=== PATIENT | female | born 1990 | race Caucasian/White ===

== ENCOUNTER 2016-05-22 17:18 | Emergency (ER) | payer SELFPAY ==
[~2016-05-22] VITALS: Ht 162.6 cm; Wt 49.0 kg
[~2016-05-22 17:18] MED LIST: IBUP-232 PO
[2016-05-22 17:27] VITALS: BP 118/76; PULSE 113; RESP 15; TEMP 99.1; O2SAT 100
[2016-05-22 18:44] LABS: BLOOD, URINE NEG (NEG); GLUCOSE,URINE NEG (NEG); KETONE, URINE TRACE mg/dL (NEG); NITRITE,URINE NEG (NEG); PH, URINE 5.5 (5.0-8.5)
[2016-05-22 18:50] LABS: URINE COLOR YELLOW (YELLW/STRAW)
[2016-05-22 18:51] LABS: COMMENT (UR) CULT NOT INDICATED; CULTURE IF INDICATED CULT NOT INDICATED; SQUAMOUS EPITHELIAL CELL URINE > 8 /hpf (0-5); WBC, URINE 0-2 /hpf (0-5)
[2016-05-22] MEDS ORDERED: DOXY100C PO (18:51)
[2016-05-22] MEDS ORDERED: METR-1 PO (18:51)
[2016-05-22] MEDS ORDERED: IBUP800T23 PO (18:51)
[2016-05-22] MEDS ORDERED: ULTR50TA5 PO (18:51)
[2016-05-22] MEDS ORDERED: ZOFR4TAB PO (18:51)
--- NOTE | 2016-05-22 18:52 | PD ---
HPI . Lower abdominal pain Chief Complaint: GI Complaint Time Seen by Provider: 18:27 Travel History International Travel<30 days: No Contact w/Intl Traveler<30days: No Traveled to known affect area: No History of Present Illness HPI Patient presents with a couple day history of lower abdominal pain. It is associated with some nausea and vomiting. She also has a vaginal discharge. She states her last normal menstrual period was over 4 weeks ago. [id number]: Suprapubic area QUALITY: Cramping DURATION: 2 days TIMING: Continuous ASSOCIATED SYMPTOMS: Vomiting and vaginal discharge PFSH Past Medical History Diminished Hearing: No Neurologic: Yes (head injury 06/26) Immunizations Current: Yes Influenza Vaccination: No ?: Unknown LMP: 04/2016 Menopausal: No : 2 Para: 2 Past Surgical History Section: Yes (2013) Gynecologic Surgery: Yes (C SECTION) Social History Alcohol Use: No Tobacco Use: Yes (02/20 PPD) Substance Use: No (HX OF NARCOTIC DEPENDENCE) Allergies-Medications (Allergen,Severity, Reaction): Coded Allergies: No Known Allergies (Verified , 05/22/16) Reported Meds & Prescriptions Reported Meds & Active Scripts Active Zofran (Ondansetron HCl) 4 Mg Tab 4 Mg PO Q6HR PRN Ultram (Tramadol HCl) 50 Mg Tab 50 Mg PO Q4H PRN Ibuprofen 800 Mg Tab 800 Mg PO Q8H PRN Flagyl (Metronidazole) 500 Mg Tab 500 Mg PO BID 7 Days Doxycycline Hyclate 100 Mg Cap 100 Mg PO BID Review of Systems Except as stated in HPI: all other systems reviewed are Neg General / Constitutional: No: Fever, Chills Gastrointestinal: Positive: Nausea, Vomiting, Abdominal Pain, No: Diarrhea Genitourinary: Positive: Discharge, Other (amenorrhea), No: Urgency, Frequency , Dysuria Physical Exam Narrative GENERAL: Awake and alert and in no acute distress. SKIN: Warm and dry. HEAD: Atraumatic. Normocephalic. EYES: Pupils equal and round. Extraocular movements are intact. ENT: No nasal bleeding or discharge. Mucous membranes pink and moist. NECK: Trachea midline. Neck is supple. CARDIOVASCULAR: Regular rate and rhythm. RESPIRATORY: No accessory muscle use. GASTROINTESTINAL: Abdomen soft, non-tender, nondistended. : She has a thick, yellow discharge. She has positive cervical motion tenderness. She has bilateral adnexal tenderness. No masses palpated. Uterus is small. MUSCULOSKELETAL: No obvious deformities. No edema. NEUROLOGICAL: Awake and alert. No obvious cranial nerve deficits. Motor grossly within normal limits. Normal speech. PSYCHIATRIC: Appropriate mood and affect; insight and judgment normal. Data Data Last Documented VS Vital Signs Date Time Temp Pulse Resp B/P Pulse Ox O2 Delivery O2 Flow Rate FiO2 05/22/16 17:27 99.1 113 15 118/76 100 Orders Gc And Chlamydia Pcr (05/22/16 18:27) Wet Prep Profile (05/22/16 18:27) Urinalysis - C+S If Indicated (05/22/16 18:27) Ed Urine Pregnancytest Poc (05/22/16 18:27) Ceftriaxone Inj (Rocephin Inj) (05/22/16 19:00) Labs Laboratory Tests Test 05/22/16 05/22/16 18:15 18:38 Urine Color YELLOW Urine Turbidity CLOUDY Urine pH 5.5 Urine Specific [place] 1.025 Urine Protein NEG mg/dL Urine Glucose (UA) NEG mg/dL Urine Ketones TRACE mg/dL Urine Occult Blood NEG Urine Nitrite NEG Urine Bilirubin NEG Urine Leukocyte Esterase NEG Urine WBC 0-2 /hpf Urine Squamous Epithelial > 8 /hpf Cells Microscopic Urinalysis Comment CULT NOT INDICATED Clue Cells (Wet Prep) NONE SEEN Vaginal Trichomonas (Wet Prep) NONE SEEN Vaginal Yeast (Wet Prep) NONE SEEN MDM Medical Decision Making Medical Screen Exam Complete: Yes Emergency Medical Condition: Yes Differential Diagnosis Differential diagnosis of pelvic pain includes but is not limited to UTI, PID, ectopic , spontaneous AB, constipation, viral illness Narrative Course Patient presents with pelvic pain associated with nausea and vomiting and vaginal discharge. Urine test is negative. Physical exam is compatible with PID. Diagnosis Primary Impression: PID (acute pelvic inflammatory disease) Patient Instructions: General Instructions, Pelvic Inflammatory Disease (DC) Scripts Ondansetron (Zofran)4 Mg Tab4 Mg PO Q6HR PRN (NAUSEA OR VOMITING) #10 TAB Ref 0 Prov:Loren Foreman MD 05/22/16 Tramadol (Ultram)50 Mg Tab50 Mg PO Q4H PRN (PAIN) #12 TAB Ref 0 Prov:Loren Foreman MD 05/22/16 Ibuprofen 800 Mg [id number] Mg PO Q8H PRN (pain) #15 TAB Ref 0 Prov:Loren Foreman MD 05/22/16 Metronidazole (Flagyl)500 Mg [id number] Mg PO BID 7 Days Ref 0 Prov:Loren Foreman MD 05/22/16 Doxycycline Hyclate 100 Mg [id number] Mg PO BID #20 CAP Ref 0 Prov:Loren Foreman MD 05/22/16 Disposition: 01 DISCHARGE HOME Condition: Stable Loren Foreman MD May 22, 2016 18:52
[2016-05-22] MEDS ORDERED: cefTRIAXone 250 MG VIAL IM ONE (19:00)
[2016-05-22] MEDS ORDERED: LIDOCAINE HCL 1% 50 ML VIAL XX ONE (19:00)
[2016-05-22 19:10] VITALS: BP 98/58; PULSE 65; RESP 18; O2SAT 100
[2016-05-23 02:03] LABS: CHLAMYDIA PCR NOT DETECTED (NOT DETECT); NEISSERIA PCR NOT DETECTED (NOT DETECT)
== END 2016-05-22 20:46 | disposition home or self-care (01) ==
LOC: PHED 17:18
DX: N73.9 Female pelvic inflammatory disease, unspecified (principal); R11.2 Nausea with vomiting, unspecified; N89.8 Other specified noninflammatory disorders of vagina; F17.200 Nicotine dependence, unspecified, uncomplicated
CPT/HCPCS: 81001; 84703; 87210; 87491; 87591; 96372; 99284; J0696

== ENCOUNTER 2016-11-23 17:52 | Emergency (ER) | payer SELFPAY ==
[~2016-11-23] VITALS: Ht 162.6 cm; Wt 46.5 kg
[~2016-11-23 17:52] MED LIST changes: +DOXY100C PO; -IBUP-232 PO; +IBUP800T23 PO; +METR-1 PO; +ULTR50TA5 PO; +ZOFR4TAB PO
[2016-11-23] MEDS ORDERED: IOHEXOL 350 MG/ML 10 ML VIAL (for RAD DIAG) IVCONTRAST ONE (17:53)
[2016-11-23 18:00] VITALS: BP 131/76; PULSE 88; RESP 16; TEMP 98.9; O2SAT 100
[2016-11-23] MEDS ORDERED: KETOROLAC TROMETHAMINE 30 MG/ML (IVP) VIAL IV PUSH ONE (18:30)
[2016-11-23] MEDS ORDERED: ONDANSETRON HCL 4 MG/2 ML VIAL IV PUSH ONE (18:30)
--- NOTE | 2016-11-23 18:33 | PD ---
HPI Chief Complaint: Abdominal Pain Time Seen by Provider: 18:20 Travel History International Travel<30 days: No Contact w/Intl Traveler<30days: No Traveled to known affect area: No History of Present Illness HPI 25yo F with no significant PMH presents to the ED with c/o lower abdominal pain and vomiting since yesterday. States it is squeezing, intermittent and radiates to lower back. Also was feeling very emotional and crying. Pt said she has had kidney stones and kidney infections before. Denies any fever, chest pain, sob, diarrhea, vaginal discharge, vaginal bleeding, STI, trauma, IVDA. Pt did not take anything for pain. PFSH Past Medical History Medical History: Denies Significant Hx Diminished Hearing: No Neurologic: Yes (head injury 06/26) Immunizations Current: Yes Tetanus Vaccination: < 5 Years Influenza Vaccination: No ?: Unknown LMP: UNKNOWN Menopausal: No : 2 Para: 2 Past Surgical History Section: Yes (2013) Gynecologic Surgery: Yes (C SECTION) Social History Alcohol Use: No Tobacco Use: Yes (1 PK) Substance Use: No (HX OF NARCOTIC DEPENDENCE) Allergies-Medications (Allergen,Severity, Reaction): Coded Allergies: No Known Allergies (Verified , 11/23/16) Reported Meds & Prescriptions Reported Meds & Active Scripts Active Ibuprofen 600 Mg Tab 600 Mg PO TID Prochlorperazine Maleate 10 Mg Tab 10 Mg PO Q6H PRN Review of Systems Except as stated in HPI: all other systems reviewed are Neg Physical Exam Narrative GENERAL: 25yo F in mild distress. SKIN: Focused skin assessment warm/dry. HEAD: Atraumatic. Normocephalic. CARDIOVASCULAR: Regular rate and rhythm. No murmur appreciated. RESPIRATORY: No accessory muscle use. Clear to auscultation. Breath sounds equal bilaterally. GASTROINTESTINAL: Abdomen soft, +TTP suprapubic region. No rebound tenderness or guarding. BACK: +CVA tenderness on left. MUSCULOSKELETAL: No obvious deformities. No clubbing. No cyanosis. No edema. NEUROLOGICAL: Awake and alert. No obvious cranial nerve deficits. Motor grossly within normal limits. Normal speech. PSYCHIATRIC: Appropriate mood and affect; insight and judgment normal. Data Data Last Documented VS Vital Signs Date Time Temp Pulse Resp B/P (MAP) Pulse Ox O2 Delivery O2 Flow Rate FiO2 11/23/16 21:35 80 18 105/66 (79) 99 11/23/16 20:33 Room Air 11/23/16 18:00 98.9 Orders Orders Complete Blood Count With Diff (11/23/16 18:26) Comprehensive Metabolic Panel (11/23/16 18:26) Lipase (11/23/16 18:26) Ketorolac Inj (Toradol Inj) (11/23/16 18:30) Ondansetron Inj (Zofran Inj) (11/23/16 18:30) Ed Urine Pregnancytest Poc (11/23/16 18:26) Urinalysis - C+S If Indicated (11/23/16 18:26) Sodium Chlor 0.9% 1000 Ml Inj (Ns 1000 M (11/23/16 18:45) Ct Abd/Pel W Iv Contrast(Rout) (11/23/16 19:34) Iohexol 350 Inj (Omnipaque 350 Inj) (11/23/16 17:53) Sodium Chlor 0.9% 1000 Ml Inj (Ns 1000 M (11/23/16 21:00) Labs Laboratory Tests Test 11/23/16 18:50 White Blood Count 3.8 TH/MM3 Red Blood Count 4.42 MIL/MM3 Hemoglobin 13.1 GM/DL Hematocrit 38.6 % Mean Corpuscular Volume 87.4 FL Mean Corpuscular Hemoglobin 29.7 PG Mean Corpuscular Hemoglobin Concent 34.0 % Red Cell Distribution Width 13.1 % Platelet Count 189 TH/MM3 Mean Platelet Volume 9.3 FL Neutrophils (%) (Auto) 57.5 % Lymphocytes (%) (Auto) 28.8 % Monocytes (%) (Auto) 9.9 % Eosinophils (%) (Auto) 3.3 % Basophils (%) (Auto) 0.5 % Neutrophils # (Auto) 2.2 TH/MM3 Lymphocytes # (Auto) 1.1 TH/MM3 Monocytes # (Auto) 0.4 TH/MM3 Eosinophils # (Auto) 0.1 TH/MM3 Basophils # (Auto) 0.0 TH/MM3 CBC Comment DIFF FINAL Differential Comment Urine Color YELLOW Urine Turbidity CLEAR Urine pH 6.0 Urine Specific [place] 1.024 Urine Protein NEG mg/dL Urine Glucose (UA) NEG mg/dL Urine Ketones NEG mg/dL Urine Occult Blood TRACE Urine Nitrite NEG Urine Bilirubin NEG Urine Leukocyte Esterase NEG Urine RBC 0-3 /hpf Urine WBC 0-2 /hpf Urine Squamous Epithelial Cells 0-5 /hpf Microscopic Urinalysis Comment CULT NOT INDICATED Blood Urea Nitrogen 12 MG/DL Creatinine 0.61 MG/DL Random Glucose 93 MG/DL Total Protein 8.0 GM/DL Albumin 4.4 GM/DL Calcium Level 9.4 MG/DL Alkaline Phosphatase 47 U/L Aspartate Amino Transf (AST/SGOT) 16 U/L Alanine Aminotransferase (ALT/SGPT) 20 U/L Total Bilirubin 0.8 MG/DL Sodium Level 139 MEQ/L Potassium Level 3.6 MEQ/L Chloride Level 107 MEQ/L Carbon Dioxide Level 25.9 MEQ/L Anion Gap 6 MEQ/L Estimat Glomerular Filtration Rate 119 ML/MIN Lipase 195 U/L MDM Medical Decision Making Medical Screen Exam Complete: Yes Emergency Medical Condition: Yes Differential Diagnosis Pyelonephritis vs. cystitis vs. nephrolithiasis vs. Narrative Course 25yo F with lower abdominal pain and urinary complaints. Pt given zofran and toradol. Labs, UA pending. Sign out to next team to follow up and reevaluate. Diagnosis Primary Impression: Abdominal pain Qualified Codes: R10.30 - Lower abdominal pain, unspecified Scripts Ibuprofen (Ibuprofen) 600 Mg Tab 600 MG PO TID, #33 TAB 0 Refills Prov: Brice Funk MD 11/23/16 Prochlorperazine Maleate (Prochlorperazine Maleate) 10 Mg Tab 10 MG PO Q6H Y for NAUSEA OR VOMITING, #30 TAB 0 Refills Prov: Brice Funk MD 11/23/16 Stefany Grant DO Nov 23, 2016 18:33
[2016-11-23] MEDS ORDERED: SODIUM CHLOR 0.9% 1000 ML INJ 1,000 ML IV ONE (18:45)
[2016-11-23 18:58] LABS: AUTOMATED NEUTROPHIL # 2.2 TH/MM3 (1.8-7.7); BASOPHIL % 0.5 % (0.0-2.0); EOSINOPHIL # 0.1 TH/MM3 (0-0.4); EOSINOPHIL % 3.3 % (0.0-4.0); HEMATOCRIT 38.6 % (35.0-46.0); HEMO FLAGS DIFF FINAL; LYMPH % 28.8 % (9.0-44.0); LYMPHOCYTE # 1.1 TH/MM3 (1.0-4.8); MEAN CELL VOLUME 87.4 FL (80.0-100.0); MEAN CORPUSCULAR HEMOGLOBIN 29.7 PG (27.0-34.0); MONO % 9.9 % (0.0-8.0); NEUT % 57.5 % (16.0-70.0); PLATELET COUNT 189 TH/MM3 (150-450); RED BLOOD COUNT 4.42 MIL/MM3 (4.00-5.30); RED CELL DISTRIBUTION WIDTH 13.1 % (11.6-17.2); WHITE BLOOD COUNT 3.8 TH/MM3 (4.0-11.0)
[2016-11-23 18:59] LABS: GLUCOSE,URINE NEG (NEG); KETONE, URINE NEG (NEG); NITRITE,URINE NEG (NEG)
[2016-11-23 19:00] VITALS: BP 115/74; PULSE 71; RESP 18; O2SAT 99
[2016-11-23 19:00] LABS: BLOOD, URINE TRACE (NEG)
[2016-11-23 19:04] LABS: CHLORIDE 107 MEQ/L (98-107); POTASSIUM 3.6 MEQ/L (3.5-5.1); SODIUM (NA) 139 MEQ/L (136-145)
[2016-11-23 19:08] LABS: URINE COLOR YELLOW (YELLW/STRAW)
[2016-11-23 19:09] LABS: ANION GAP 6 MEQ/L (5-15); BICARBONATE 25.9 MEQ/L (21.0-32.0); BLOOD UREA NITROGEN 12 MG/DL (7-18); WBC, URINE 0-2 /hpf (0-5)
[2016-11-23 19:10] LABS: COMMENT (UR) CULT NOT INDICATED; CULTURE IF INDICATED CULT NOT INDICATED; RBC, URINE 0-3 /hpf (0-3); SQUAMOUS EPITHELIAL CELL URINE 0-5 /hpf (0-5)
[2016-11-23 19:12] LABS: ALT (GPT) 20 U/L (10-53); AST (GOT) 16 U/L (15-37); GLOMERULAR FILTRATION RATE 119 ML/MIN (>89)
[2016-11-23 19:14] LABS: TOTAL BILIRUBIN ADULT 0.8 MG/DL (0.2-1.0)
[2016-11-23 19:15] LABS: ALKALINE PHOSPHATASE 47 U/L (45-117)
--- NOTE | 2016-11-23 19:34 | PD ---
Physical Exam Time Seen by Provider: 19:[address] Grant with this patient with me to check the laboratory and make a disposition. The patient states she feels slightly better but is still very tender in the bilateral lower quadrants. Data Data Last Documented VS Vital Signs Date Time Temp Pulse Resp B/P (MAP) Pulse Ox O2 Delivery O2 Flow Rate FiO2 11/23/16 20:33 82 16 102/66 (78) 100 Room Air 11/23/16 18:00 98.9 Orders Orders Complete Blood Count With Diff (11/23/16 18:26) Comprehensive Metabolic Panel (11/23/16 18:26) Lipase (11/23/16 18:26) Ketorolac Inj (Toradol Inj) (11/23/16 18:30) Ondansetron Inj (Zofran Inj) (11/23/16 18:30) Ed Urine Pregnancytest Poc (11/23/16 18:26) Urinalysis - C+S If Indicated (11/23/16 18:26) Sodium Chlor 0.9% 1000 Ml Inj (Ns 1000 M (11/23/16 18:45) Ct Abd/Pel W Iv Contrast(Rout) (11/23/16 19:34) Iohexol 350 Inj (Omnipaque 350 Inj) (11/23/16 17:53) Sodium Chlor 0.9% 1000 Ml Inj (Ns 1000 M (11/23/16 21:00) Labs Laboratory Tests Test 11/23/16 18:50 White Blood Count 3.8 TH/MM3 Red Blood Count 4.42 MIL/MM3 Hemoglobin 13.1 GM/DL Hematocrit 38.6 % Mean Corpuscular Volume 87.4 FL Mean Corpuscular Hemoglobin 29.7 PG Mean Corpuscular Hemoglobin Concent 34.0 % Red Cell Distribution Width 13.1 % Platelet Count 189 TH/MM3 Mean Platelet Volume 9.3 FL Neutrophils (%) (Auto) 57.5 % Lymphocytes (%) (Auto) 28.8 % Monocytes (%) (Auto) 9.9 % Eosinophils (%) (Auto) 3.3 % Basophils (%) (Auto) 0.5 % Neutrophils # (Auto) 2.2 TH/MM3 Lymphocytes # (Auto) 1.1 TH/MM3 Monocytes # (Auto) 0.4 TH/MM3 Eosinophils # (Auto) 0.1 TH/MM3 Basophils # (Auto) 0.0 TH/MM3 CBC Comment DIFF FINAL Differential Comment Urine Color YELLOW Urine Turbidity CLEAR Urine pH 6.0 Urine Specific [place] 1.024 Urine Protein NEG mg/dL Urine Glucose (UA) NEG mg/dL Urine Ketones NEG mg/dL Urine Occult Blood TRACE Urine Nitrite NEG Urine Bilirubin NEG Urine Leukocyte Esterase NEG Urine RBC 0-3 /hpf Urine WBC 0-2 /hpf Urine Squamous Epithelial Cells 0-5 /hpf Microscopic Urinalysis Comment CULT NOT INDICATED Blood Urea Nitrogen 12 MG/DL Creatinine 0.61 MG/DL Random Glucose 93 MG/DL Total Protein 8.0 GM/DL Albumin 4.4 GM/DL Calcium Level 9.4 MG/DL Alkaline Phosphatase 47 U/L Aspartate Amino Transf (AST/SGOT) 16 U/L Alanine Aminotransferase (ALT/SGPT) 20 U/L Total Bilirubin 0.8 MG/DL Sodium Level 139 MEQ/L Potassium Level 3.6 MEQ/L Chloride Level 107 MEQ/L Carbon Dioxide Level 25.9 MEQ/L Anion Gap 6 MEQ/L Estimat Glomerular Filtration Rate 119 ML/MIN Lipase 195 U/L [facility] Medical Record Reviewed: Yes Supervised Visit with DAYSI: Yes Interpretation(s) The urine point of care test is negative. The CBC, lipase and complete metabolic profile are normal. The CT abdomen/pelvis with IV contrast shows a collapsing 2.7 cm cyst/follicle at the left ovary. The appendix appears normal and there is mild biliary duct dilatation and pancreatic duct dilatation. Differential Diagnosis Ovarian cyst, Gastroenteritis, colitis, appendicitis, PID Narrative Course The patient likely has a collapsing left ovarian cyst. The fluid has irritated both sides of the pelvis and is likely a bloody cyst. The ductal dilatation as mention on the CT scan is unlikely to be the cause of her pain, she has no tenderness in this area. Plan: Push we put on ibuprofen and is given Compazine for nausea. Diagnosis Primary Impression: Ovarian cyst rupture Additional Instruction: This appears to be a ruptured ovarian cyst on the left. The fluid/blood from this rupture likely spread across the pelvis kidney pain on both sides. We will give you a bee profile in for pain and Compazine for nausea. Follow-up with a retail marketing executive as soon as possible. Med/Other Pt SpecificInfo: Prescription(s) given Scripts Ibuprofen (Ibuprofen) 600 Mg Tab 600 MG PO TID, #33 TAB 0 Refills Prov: Brice Funk MD 11/23/16 Prochlorperazine Maleate (Prochlorperazine Maleate) 10 Mg Tab 10 MG PO Q6H Y for NAUSEA OR VOMITING, #30 TAB 0 Refills Prov: Brice Funk MD 11/23/16 Disposition: 01 DISCHARGE HOME Condition: Stable Brice Funk MD Nov 23, 2016 19:34
[2016-11-23 20:33] VITALS: BP 102/66; PULSE 82; RESP 16; O2SAT 100
[2016-11-23] MEDS ORDERED: SODIUM CHLOR 0.9% 1000 ML INJ 1,000 ML IV SCH (21:00)
--- NOTE | 2016-11-23 21:06 | RADRPT ---
EXAM DATE/TIME: 11/23/2016 20:14 [facility] COMPARISON: No previous studies available for comparison. INDICATIONS : Right lower quadrant pain with nausea and vomiting. IV CONTRAST: 91 cc Omnipaque 350 (iohexol) IV ORAL CONTRAST: No oral contrast ingested. RADIATION DOSE: 3.69 CTDIvol (mGy) MEDICAL HISTORY : None SURGICAL HISTORY : section. ENCOUNTER: Initial ACUITY: 2 days PAIN SCALE: 5/10 LOCATION: Right lower quadrant TECHNIQUE: Volumetric scanning of the abdomen and pelvis was performed. Using automated exposure control and ad justment of the mA and/or kV according to patient size, radiation dose was kept as low as reasonably achievable to obtain optimal diagnostic quality images. DICOM format image data is available electro nically for review and comparison. FINDINGS: LOWER LUNGS: The visualized lower lungs are clear. LIVER: Homogeneous density without lesion. There is no dilation of the biliary tree. No calcified gallston es. The gallbladder is not distended. The common bile duct is mildly distended at 7 mm. There is dist ention of the pancreatic duct measuring 3 mm. SPLEEN: Normal size without lesion. PANCREAS: The pancreatic duct is dilated measuring 3 mm. KIDNEYS: Normal in size and shape. There is no mass, stone or hydronephrosis. ADRENAL GLANDS: Within normal limits. VASCULAR: There is no aortic aneurysm. BOWEL/MESENTERY: The stomach, small bowel, and colon demonstrate no acute abnormality. There is no free intraperitone al air or fluid. The appendix is seen. It measures 8 mm in thickness just borderline enlarged. The fa t around the appendix is not indurated and appears normal. ABDOMINAL WALL: Within normal limits. RETROPERITONEUM: There is no lymphadenopathy. BLADDER: No wall thickening or mass. REPRODUCTIVE: There is free fluid in the pelvis being more prominent right. There is a 2.7 cm peripherally enhancin g elongated cystic area in the left adnexa likely related to a collapsing cyst/follicle. INGUINAL: There is no lymphadenopathy or hernia. MUSCULOSKELETAL: Within normal limits for patient age. CONCLUSION: 1. Mild free fluid in the pelvis with a suspected collapsing 2.7 cm cyst/follicle at the left ovary. 2. The appendix appears upper limits of normal for size. The fat around the appendix appears normal. This focus is within normal limits. 3. Mild biliary duct dilatation and pancreatic duct dilatation. The cause for this is not seen. Vito Coats MD on November 23, 2016 at 20:59 Board Certified Radiologist. This report was verified electronically.
[2016-11-23] MEDS ORDERED: IBUP-232 PO (21:29)
[2016-11-23] MEDS ORDERED: PROC10TA PO (21:29)
[2016-11-23 21:35] VITALS: BP 105/66
== END 2016-11-23 21:42 | disposition home or self-care (01) ==
LOC: PHED 17:52
DX: N83.202 Unspecified ovarian cyst, left side (principal)
CPT/HCPCS: 74177; 80053; 81001; 83690; 84703; 85025; 96361; 96374; 96375; 99285; J1885; J2405; J7030; Q9967

== ENCOUNTER 2017-04-21 03:27 | Emergency (ER) | payer SELFPAY ==
[~2017-04-21] VITALS: Ht 162.6 cm; Wt 52.0 kg
[~2017-04-21 03:27] MED LIST changes: -DOXY100C PO; +IBUP-232 PO; -IBUP800T23 PO; -METR-1 PO; +PROC10TA PO; -ULTR50TA5 PO; -ZOFR4TAB PO
[2017-04-21 03:40] VITALS: BP 144/83; PULSE 112; RESP 20; TEMP 99.7; O2SAT 97
[2017-04-21] MEDS ORDERED: ACETAMINOPHEN 325 MG TAB PO ONE (04:00)
[2017-04-21] MEDS ORDERED: IBUPROFEN 400 MG TAB PO ONE (05:00)
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
[2017-04-21 05:21] VITALS: BP 140/80
== END 2017-04-21 05:31 | disposition home or self-care (01) ==
LOC: PHED 03:27
DX: S09.90XA Unspecified injury of head, initial encounter (principal); V89.2XXA Person injured in unspecified motor-vehicle accident, traffic, initial encounter; F17.200 Nicotine dependence, unspecified, uncomplicated
CPT/HCPCS: 70450; 80307; 84703; 99284

== ENCOUNTER 2017-08-14 00:45 | Emergency (ER) | payer SELFPAY ==
[~2017-08-14] VITALS: Ht 162.6 cm; Wt 48.3 kg
[2017-08-14 01:00] VITALS: BP 133/83; PULSE 91; RESP 16; TEMP 98.2; O2SAT 100
[2017-08-14 01:11] VITALS: BP 133/83; PULSE 91; RESP 18; TEMP 98.2; O2SAT 100
[2017-08-14 01:36] LABS: AUTOMATED NEUTROPHIL # 2.5 TH/MM3 (1.8-7.7); BASOPHIL % 0.9 % (0.0-2.0); EOSINOPHIL # 0.2 TH/MM3 (0-0.4); EOSINOPHIL % 4.7 % (0.0-4.0); HEMATOCRIT 38.9 % (35.0-46.0); HEMOGLOBIN 12.7 GM/DL (11.6-15.3); LYMPH % 32.9 % (9.0-44.0); LYMPHOCYTE # 1.5 TH/MM3 (1.0-4.8); MEAN CELL VOLUME 90.2 FL (80.0-100.0); MEAN CORPUSCULAR HEMOGLOBIN 29.5 PG (27.0-34.0); MEAN CORPUSCULAR HGB CONC 32.7 % (32.0-36.0); MEAN PLATELET VOLUME 9.2 FL (7.0-11.0); MONOCYTE # 0.4 TH/MM3 (0-0.9); NEUT % 53.5 % (16.0-70.0); PLATELET COUNT 206 TH/MM3 (150-450); RED BLOOD COUNT 4.31 MIL/MM3 (4.00-5.30); RED CELL DISTRIBUTION WIDTH 13.2 % (11.6-17.2); WHITE BLOOD COUNT 4.6 TH/MM3 (4.0-11.0)
[2017-08-14 01:36] LABS: BILIRUBIN, URINE NEG (NEG); BLOOD, URINE NEG (NEG); GLUCOSE,URINE NEG (NEG); KETONE, URINE NEG (NEG); NITRITE,URINE NEG (NEG); URINE COLOR YELLOW (YELLW/STRAW); URINE LEUKOCYTE ESTERASE NEG (NEG)
[2017-08-14 01:42] LABS: BACTERIA, URINE OCC /hpf; RBC, URINE 0-2 /hpf (0-3); SQUAMOUS EPITHELIAL CELL URINE > 8 /hpf (0-5)
[2017-08-14 01:43] LABS: CHLORIDE 107 MEQ/L (98-107); SODIUM (NA) 141 MEQ/L (136-145)
[2017-08-14 01:46] LABS: ALBUMIN 4.7 GM/DL (3.4-5.0); BICARBONATE 25.6 MEQ/L (21.0-32.0); CALCIUM 9.3 MG/DL (8.5-10.1); GLUCOSE,RANDOM 100 MG/DL (74-106)
[2017-08-14 01:47] LABS: BLOOD UREA NITROGEN 9 MG/DL (7-18)
[2017-08-14 01:49] LABS: ALT (GPT) 22 U/L (10-53); AST (GOT) 20 U/L (15-37); GLOMERULAR FILTRATION RATE 148 ML/MIN (>89)
[2017-08-14 01:51] LABS: TOTAL BILIRUBIN ADULT 0.3 MG/DL (0.2-1.0); TOTAL PROTEIN 8.3 GM/DL (6.4-8.2)
[2017-08-14 01:52] LABS: ALKALINE PHOSPHATASE 53 U/L (45-117)
[2017-08-14 02:00] VITALS: BP 121/73; PULSE 94; RESP 16; O2SAT 98
--- NOTE | 2017-08-14 02:16 | PD ---
HPI Chief Complaint: Abdominal Pain Time Seen by Provider: 02:00 Travel History International Travel<30 days: No Contact w/Intl Traveler<30days: No Traveled to known affect area: No History of Present Illness HPI The patient is a 26-year-old female, G4, P3, A1 with 2 of her deliveries being C -section who complains of midline suprapubic discomfort. She states she is 19 days late on her menstrual period. She did a test at home which was questionable. The patient states he has a gradual onset of abdominal discomfort for the last 3 or 4 days which ranges from a 5-9/10 in intensity and sharp pain. She states she does have frequency of urination and no non-foul- smelling vaginal discharge. Her only surgeries are C-sections and she still has her appendix and gallbladder. PFSH Past Medical History Diminished Hearing: No Kidney Stones: Yes Neurologic: Yes (head injury 06/26) Immunizations Current: Yes Influenza Vaccination: No ?: Not LMP: 07/02/2017 Menopausal: No : 2 Para: 2 Past Surgical History Section: Yes (2X) Gynecologic Surgery: Yes (C SECTION) Social History Alcohol Use: No Tobacco Use: Yes (2ppd) Substance Use: No (HX OF NARCOTIC DEPENDENCE) Allergies-Medications (Allergen,Severity, Reaction): Coded Allergies: tramadol (Verified Allergy, Mild, Hives, 08/14/17) Reported Meds & Prescriptions Reported Meds & Active Scripts Active Review of Systems Except as stated in HPI: all other systems reviewed are Neg Physical Exam Narrative GENERAL: The patient is alert, oriented 3 in slight apparent distress with her pelvic discomfort. Her vital signs are normal except for a pulse rate of 91.. SKIN: Focused skin assessment warm/dry. HEAD: Atraumatic. Normocephalic. EYES: Pupils equal and round. No scleral icterus. No injection or drainage. ENT: No nasal bleeding or discharge. Mucous membranes pink and moist. NECK: Trachea midline. No JVD. CARDIOVASCULAR: Regular rate and rhythm. No murmur appreciated. RESPIRATORY: No accessory muscle use. Clear to auscultation. Breath sounds equal bilaterally. GASTROINTESTINAL: Abdomen soft, non-tender, nondistended. Hepatic and splenic margins not palpable. MUSCULOSKELETAL: No obvious deformities. No clubbing. No cyanosis. No edema. NEUROLOGICAL: Awake and alert. No obvious cranial nerve deficits. Motor grossly within normal limits. Normal speech. PSYCHIATRIC: Appropriate mood and affect; insight and judgment normal. GENITOURINARY: Normal external genitalia without lesions or erythema. Vaginal vault without blood but there is a pure white, [id number] drainage. Cervical os was closed with clear drainage. There is bilateral cervical motion tenderness. Uterus nontender and nonenlarged. The left adnexa shows a possible ovarian cyst. The patient states he has had an ovarian cyst on the left before. This is tender Over the left adnexa. Data Data Last Documented VS Vital Signs Date Time Temp Pulse Resp B/P (MAP) Pulse Ox O2 Delivery O2 Flow Rate FiO2 08/14/17 02:00 94 16 121/73 (89) 98 Room Air 08/14/17 01:11 98.2 Orders Orders Complete Blood Count With Diff (08/14/17 01:06) Comprehensive Metabolic Panel (08/14/17 01:06) Urinalysis - C+S If Indicated (08/14/17 01:06) Ed Urine Pregnancytest Poc (08/14/17 01:06) Iv Access Insert/Monitor (08/14/17 01:06) Oxygen Administration (08/14/17 01:06) Oximetry (08/14/17 01:06) Gc And Chlamydia Pcr (08/14/17 02:07) Wet Prep Profile (08/14/17 02:07) Beta Hcg (Quant/Titer) (08/14/17 01:16) Labs Laboratory Tests Test 08/14/17 01:11 08/14/17 01:16 08/14/17 02:20 Urine Color YELLOW Urine Turbidity CLEAR Urine pH 7.0 Urine Specific Poston 1.010 Urine Protein NEG mg/dL Urine Glucose (UA) NEG mg/dL Urine Ketones NEG mg/dL Urine Occult Blood NEG Urine Nitrite NEG Urine Bilirubin NEG Urine Urobilinogen 0.2 MG/DL Urine Leukocyte Esterase NEG Urine RBC 0-2 /hpf Urine WBC 3-5 /hpf Urine Squamous Epithelial Cells > 8 /hpf Urine Bacteria OCC /hpf Microscopic Urinalysis Comment CULT NOT INDICATED White Blood Count 4.6 TH/MM3 Red Blood Count 4.31 MIL/MM3 Hemoglobin 12.7 GM/DL Hematocrit 38.9 % Mean Corpuscular Volume 90.2 FL Mean Corpuscular Hemoglobin 29.5 PG Mean Corpuscular Hemoglobin Concent 32.7 % Red Cell Distribution Width 13.2 % Platelet Count 206 TH/MM3 Mean Platelet Volume 9.2 FL Neutrophils (%) (Auto) 53.5 % Lymphocytes (%) (Auto) 32.9 % Monocytes (%) (Auto) 8.0 % Eosinophils (%) (Auto) 4.7 % Basophils (%) (Auto) 0.9 % Neutrophils # (Auto) 2.5 TH/MM3 Lymphocytes # (Auto) 1.5 TH/MM3 Monocytes # (Auto) 0.4 TH/MM3 Eosinophils # (Auto) 0.2 TH/MM3 Basophils # (Auto) 0.0 TH/MM3 CBC Comment DIFF FINAL Differential Comment Blood Urea Nitrogen 9 MG/DL Creatinine 0.50 MG/DL Random Glucose 100 MG/DL Total Protein 8.3 GM/DL Albumin 4.7 GM/DL Calcium Level 9.3 MG/DL Alkaline Phosphatase 53 U/L Aspartate Amino Transf (AST/SGOT) 20 U/L Alanine Aminotransferase (ALT/SGPT) 22 U/L Total Bilirubin 0.3 MG/DL Sodium Level 141 MEQ/L Potassium Level 3.7 MEQ/L Chloride Level 107 MEQ/L Carbon Dioxide Level 25.6 MEQ/L Anion Gap 8 MEQ/L Estimat Glomerular Filtration Rate 148 ML/MIN Human Chorionic Gonadotropin, Quant LESS THAN 1 MIU/ML Clue Cells (Wet Prep) NONE SEEN Vaginal Trichomonas (Wet Prep) NONE SEEN Vaginal Yeast (Wet Prep) NONE SEEN MDM Medical Decision Making Medical Screen Exam Complete: Yes Emergency Medical Condition: Yes Medical Record Reviewed: Yes Interpretation(s) The complete metabolic profile is normal except for protein of 8.3. The beta- hCG is less than 1. The wet prep is negative for trichomonas, yeast and clue cells. The CBC is normal. The urinalysis is normal. Differential Diagnosis Leaking ovarian cyst, PID, ectopic , intrauterine , anemia, urinary tract infection, electrolyte disorder Narrative Course The patient may have a leaking ovarian cyst. This is likely. Her cervix is tender and we will treat her with the protocol for PID, I think this is an unlikely diagnosis in this patient. Diagnosis Primary Impression: Leaking ovarian cyst Additional Impression: PID (acute pelvic inflammatory disease) Additional Instructions: Follow-up with her senior financial consultant. I believe your period is late because of hormonal problems which is beyond the scope of the emergency department. Med/Other Pt SpecificInfo: No Change to Meds Disposition: 01 DISCHARGE HOME Condition: Stable Brice Funk MD Aug 14, 2017 02:16
[2017-08-14] MEDS ORDERED: AZITHROMYCIN PWD FOR SUSP 1 GM PACKET PO ONE (03:00)
[2017-08-14] MEDS ORDERED: cefTRIAXone INJ 1,000 MG in SODIUM CHLORIDE 0.9% INJ 100 ML IV ONE (03:00)
[2017-08-14] MEDS ORDERED: ONDANSETRON HCL 4 MG/2 ML VIAL IV PUSH ONE (03:30)
[2017-08-14 04:01] VITALS: BP 102/70
== END 2017-08-14 04:08 | disposition home or self-care (01) ==
LOC: PHED 00:45
DX: N83.209 Unspecified ovarian cyst, unspecified side (principal); N73.0 Acute parametritis and pelvic cellulitis; F17.200 Nicotine dependence, unspecified, uncomplicated
CPT/HCPCS: 80053; 81001; 84702; 84703; 85025; 87210; 87491; 87591; 96365; 96375; 99284; J0696; J2405